=== PATIENT | male | born 1960 | race Caucasian/White ===

== ENCOUNTER 2020-12-03 09:41 | Outpatient (CLI) | payer OTHER, SELFPAY ==
--- NOTE | 2020-12-03 11:30 | NEURO_ITS ---
Impression: # Complains of numbness of hands. # Subtle Carpal Tunnel Syndrome involving only sensory component. # No ulnar neuropathy. # Normal needle/EMG exam. Nerve Conduction Studies Anti Sensory Summary Table Stim Site NR Peak (ms) P-T Amp (?V) Site1 Site2 Delta-P (ms) Dist (cm) Shen (m/s) Left Median Anti Sensory (2-3nd Digit) Wrist 3.8 18.1 Wrist 2-3nd Digit 3.8 14.0 37 Wrist 4.2 40.6 Wrist 2-3nd Digit 3.8 14.0 37 Right Median Anti Sensory (2-3nd Digit) Wrist 3.7 34.7 Wrist 2-3nd Digit 3.7 14.0 38 Wrist 3.6 39.3 Wrist 2-3nd Digit 3.7 14.0 38 Left Radial Anti Sensory (Base 1st Digit) Wrist 2.8 17.5 Wrist Base 1st Digit 2.8 0.0 Right Radial Anti Sensory (Base 1st Digit) Wrist 2.8 11.7 Wrist Base 1st Digit 2.8 0.0 Left Ulnar Anti Sensory (5th Digit) Wrist 2.1 56.7 Wrist 5th Digit 2.1 14.0 67 Right Ulnar Anti Sensory (5th Digit) Wrist 3.0 27.9 Wrist 5th Digit 3.0 14.0 47 Motor Summary Table Stim Site NR Onset (ms) O-P Amp (mV) Site1 Site2 Delta-0 (ms) Dist (cm) Shen (m/s) Left Median Motor (Abd Poll Brev) Wrist 3.7 2.8 Elbow Wrist 5.0 30.0 60 Elbow 8.7 3.0 Right Median Motor (Abd Poll Brev) Wrist 3.7 4.5 Elbow Wrist 5.0 29.0 58 Elbow 8.7 4.1 Left Ulnar Motor (Abd Dig Minimi) Wrist 2.8 6.7 A Elbow Wrist 5.6 32.0 57 A Elbow 8.4 6.2 Right Ulnar Motor (Abd Dig Minimi) Wrist 2.8 7.1 A Elbow Wrist 5.4 31.0 57 A Elbow 8.2 6.0 F Wave Studies NR F-Lat (ms) L-R F-Lat (ms) Left Median (Mrkrs) (Abd Poll Brev) 29.62 0.54 Right Median (Mrkrs) (Abd Poll Brev) 30.16 0.54 Left Ulnar (Mrkrs) (Abd Dig Min) 29.21 1.02 Right Ulnar (Mrkrs) (Abd Dig Min) 30.22 1.02 EMG Side Muscle Nerve Root Ins Act Fibs Amp Dur Recrt Comment Right 1stDorInt Ulnar C8-T1 Nml Nml Nml Nml Nml Right Ext Indicis Radial (Post Int) C7-8 Nml Nml Nml Nml Nml Right Ext Digitorum Radial (Post Int) C7-8 Nml Nml Nml Nml Nml Right BrachioRad Radial C5-6 Nml Nml Nml Nml Nml Right PronatorTeres Median C6-7 Nml Nml Nml Nml Nml Right Abd Poll Brev Median C8-T1 Nml Nml Nml Nml Nml Left 1stDorInt Ulnar C8-T1 Nml Nml Nml Nml Nml Left Ext Indicis Radial (Post Int) C7-8 Nml Nml Nml Nml Nml Left Ext Digitorum Radial (Post Int) C7-8 Nml Nml Nml Nml Nml Left BrachioRad Radial C5-6 Nml Nml Nml Nml Nml Left PronatorTeres Median C6-7 Nml Nml Nml Nml Nml Left Abd Poll Brev Median C8-T1 Nml Nml Nml Nml Nml Right Biceps Musculocut C5-6 Nml Nml Nml Nml Nml Right Triceps Radial C6-7-8 Nml Nml Nml Nml Nml Right Deltoid Axillary C5-6 Nml Nml Nml Nml Nml Left Biceps Musculocut C5-6 Nml Nml Nml Nml Nml Left Triceps Radial C6-7-8 Nml Nml Nml Nml Nml Left Deltoid Axillary C5-6 Nml Nml Nml Nml Nml Left ABD Dig Min Ulnar C8-T1 Nml Nml Nml Nml Nml Right ABD Dig Min Ulnar C8-T1 Nml Nml Nml Nml Nml MTDD
== END 2020-12-03 09:42 | disposition home or self-care (01) ==
PROVIDERS: Visit Provider Orthopaedic Surgery
DX: G56.03 Carpal tunnel syndrome, bilateral upper limbs (principal)
CPT/HCPCS: 95886; 95911

== ENCOUNTER 2020-12-29 01:24 | Day surgery (SDC) | payer OTHER, SELFPAY ==
[2020-12-21 14:49] VITALS: BMI 23.7
--- NOTE | 2020-12-28 15:35 | P.PNAN_ITS ---
Anes - Initial Pre Proc Eval Procedure: Operation Date: 12/29/20 14:30 Proposed Procedures p Right Carpal Tunnel Release - Boone Reynaga MD Date/Time: 12/28/20 15:35 Surgeon: Boone Reynaga MD Pre Op Diagnosis: carpal tunnel syndrome Patient Data Age: 60 Gender: M Height: 1.8 m Weight: 77.11 kg Allergies Allergy/AdvReac Type Severity Reaction Status Date / Time No Known Allergies Allergy Verified 12/23/20 10:57 Home Medications Medication Instructions Recorded Confirmed Type No Home Medications 11/05/20 12/23/20 History Patient hx anesthesia problems: none Family hx anesthesia problems: none Results Review: All pre-operative results and documents have been reviewed as part of the pre-operative evaluation. [facility] Past Medical History Medical History (Updated 12/28/20 @ 15:36 by Edinson Conn MD) Carpal tunnel syndrome of left wrist Carpal tunnel syndrome of right wrist ETOH abuse Left knee pain Primary osteoarthritis of left knee Surgical History Surgical History History of hand surgery (~11/1977) End of Ring Finger Amputated, Long Finger Mangled, Surgery (Pin) Put in Long Finger History of hand surgery (~2015) History of nasal surgery (~06/1988) Nasal Septal Reconstruction History of tonsillectomy and adenoidectomy (~09/1967) Family History Family History Father Throat cancer Mother Diabetes mellitus Social History Social History Smoking status: Never smoker Tobacco type: smokeless tobacco Smokeless tobacco user: chewing tobacco Second hand tobacco smoke exposure: No Additional smoking assessment comments: Quit chewing tobacco 10 years ago; did it for 25 years or so Alcohol intake: current Drinks per week: 70 Alcohol use details: beer drinks (10-12 beers per day) Substance use: never Substance use type: does not use Living arrangements: with family Spiritual care concerns: No Anes - Eval Final PreProcedure Day of Procedure 12/28/20 15:35 Patient weight: normal Heart: regular rate and rhythm Lungs: clear to auscultation and normal air movement Airway: Mallampati scale class II Neurological: alert and oriented Last oral intake: >/= 8 hours ASA classification: III Emergent: no Anesthetic plan: proceed Anesthesia type and monitoring: general GIVS and LMA Results Review: All pre-operative results and documents have been reviewed as part of the pre-operative evaluation. Informed Consent: The patient's anesthetic plan and its attendant risks and benefits were discussed with the patient/family/POA. Questions were solicited and answers provided to the satisfaction of the patient/family/POA.
--- NOTE | 2020-12-29 10:41 | WPDHPUPDATE1 ---
History and Physical Update Update Date/Time: 12/29/20 10:41 History and Physical has been reviewed, including an updated exam of the patient. There are NO changes in the patient's condition. Risks, benefits, and alternatives have been discussed and questions answered. Patient agrees to proceed with procedure.
[2020-12-29 12:35] VITALS: BP 177/85; PULSE 74; RESP 16; TEMP 36.5; O2SAT 100
[2020-12-29 12:40] VITALS: BMI 23.1
[2020-12-29] MEDS: LACTATED RINGERS 1,000 ML 30 ML IV CONT (12:50)
[2020-12-29] MEDS: ACETAMINOPHEN 500 MG TABLET 1000 MG PO (12:54)
[2020-12-29] MEDS: KETOROLAC 15 MG/ML VIAL (*BKC) IV PUSH (12:55)
[2020-12-29 14:04] VITALS: BP 138/81; PULSE 81; RESP 14; O2SAT 96
[2020-12-29] MEDS: LIDO 1%/EPINEPHRINE 1:100,000 50 ML VIAL INFILTRATE (14:06)
--- NOTE | 2020-12-29 14:23 | W.PM.PROC2 ---
Procedure Note - Detailed Date of Procedure 12/29/20 Pre-op Diagnosis carpal tunnel syndrome Post-op Diagnosis same Procedure Performed Right carpal tunnel release. Surgeon Boone Reynaga MD Anesthesia general Description of Procedure Operative details. After sedation was administer, the hand was prepped and draped in the usual sterile fashion. The proposed incision was marked using typical anatomic landmarks. 5ML 1% Lidocaine with epinephrine was injected along the incision line and at the distal forearm. The limb was exsanguinated and the tourniquet inflated to 250 millimeters of mercury. A longitudinal incision was taken sharply. Dissection was brought down to the transverse carpal ligament. Under direct vision the ligament was incised sharply. The proximal release was carried out with dissection scissors. The contents of the carpal canal were protected with a [place] elevator. The transverse carpal ligament was confirmed to be widely patent. Estimated Blood Loss -1.0 Tourniquet Time 4 Pathology none sent Complications No immediate complications Condition stable Disposition PACU
[2020-12-29 14:30] VITALS: BP 150/79; PULSE 72; RESP 16
== END 2020-12-29 14:50 | disposition home or self-care (01) ==
PROVIDERS: Visit Provider Orthopaedic Surgery
PROC: (CPT 64721; principal; 2020-12-29 14:30)
DX: G56.01 Carpal tunnel syndrome, right upper limb (principal); Z87.891 Personal history of nicotine dependence
CPT/HCPCS: 64721; A9270; J1885; J2250; J2270; J2704; J7120

== ENCOUNTER 2021-01-21 13:08 | Day surgery (SDC) | payer OTHER, SELFPAY ==
[2021-01-13 10:22] VITALS: BMI 23.6
[2021-01-21] VITALS (7 sets, daily range): BP systolic 124–180; BP diastolic 77–91; PULSE 51–72; RESP 10–16; TEMP 36.2–37.1; O2SAT 99–100
--- NOTE | 2021-01-21 07:21 | WPDHPUPDATE1 ---
History and Physical Update Update Date/Time: 01/21/21 07:21 History and Physical has been reviewed, including an updated exam of the patient. There are NO changes in the patient's condition. Risks, benefits, and alternatives have been discussed and questions answered. Patient agrees to proceed with procedure.
[2021-01-21] MEDS: LACTATED RINGERS 1,000 ML 30 ML IV CONT (09:26)
[2021-01-21] MEDS: ACETAMINOPHEN 500 MG TABLET 1000 MG PO (09:26)
[2021-01-21] MEDS: KETOROLAC 15 MG/ML VIAL (*BKC) IV PUSH (09:26)
--- NOTE | 2021-01-21 09:41 | WPDANESEPPF ---
Anes - Initial Pre Proc Eval Procedure: Operation Date: 01/21/21 10:30 Proposed Procedures p Left Carpal Tunnel Release - Boone Reynaga MD Date/Time: 01/21/21 09:41 Surgeon: Boone Reynaga MD Pre Op Diagnosis: left carpal tunnel syndrome Patient Data Age: 60 Gender: M Height: 1.8 m Weight: 77.3 kg Last Vital Signs Temp 37.1 C 01/21/21 09:02 Pulse 72 01/21/21 09:02 Resp 16 01/21/21 09:02 BP 180/91 H 01/21/21 09:02 Pulse Ox 100 01/21/21 09:02 Allergies Allergy/AdvReac Type Severity Reaction Status Date / Time No Known Allergies Allergy Verified 01/21/21 08:54 Home Medications Medication Instructions Recorded Confirmed Type hydrocodone-acetaminophen 1 tablet PO Q4-6H PRN #20 tablet 12/29/20 01/21/21 Rx MDD 6 Patient hx anesthesia problems: none Family hx anesthesia problems: none Results Review: All pre-operative results and documents have been reviewed as part of the pre-operative evaluation. [facility] Past Medical History Medical History Carpal tunnel syndrome of left wrist Carpal tunnel syndrome of right wrist ETOH abuse Left knee pain Primary osteoarthritis of left knee Surgical History Surgical History History of hand surgery (~11/1977) End of Ring Finger Amputated, Long Finger Mangled, Surgery (Pin) Put in Long Finger History of hand surgery (~2015) History of nasal surgery (~06/1988) Nasal Septal Reconstruction History of tonsillectomy and adenoidectomy (~09/1967) Family History Family History Father Throat cancer Mother Diabetes mellitus Social History Social History Smoking status: Never smoker Tobacco type: smokeless tobacco Smokeless tobacco user: chewing tobacco Second hand tobacco smoke exposure: No Additional smoking assessment comments: Quit chewing tobacco 10 years ago; did it for 25 years or so Alcohol intake: current Drinks per week: 70 Alcohol use details: beer drinks (10-12 beers per day) Substance use: never Substance use type: does not use Spiritual care concerns: No Anes - Eval Final PreProcedure Day of Procedure 01/21/21 09:41 Patient weight: normal Heart: regular rate and rhythm Lungs: decreased breath sounds Airway: Mallampati scale class II and class III Neurological: alert and oriented Last oral intake: >/= 8 hours ASA classification: III Emergent: no Anesthetic plan: proceed Anesthesia type and monitoring: general LMA and standard monitoring Results Review: All pre-operative results and documents have been reviewed as part of the pre-operative evaluation. Informed Consent: The patient's anesthetic plan and its attendant risks and benefits were discussed with the patient/family/POA. Questions were solicited and answers provided to the satisfaction of the patient/family/POA.
[2021-01-21] MEDS: ceFAZolin 2 GM/D5W 50 ML 2 GM/50 ML BAG IVPB (10:43)
--- NOTE | 2021-01-21 17:20 | P.OP_ITS ---
Procedure Note - Detailed Date of Procedure 01/21/21 Pre-op Diagnosis left carpal tunnel syndrome Post-op Diagnosis same Procedure Performed Left Carpal tunnel release Surgeon Boone Reynaga MD Cementing Machine Operator Letitia Joe PA-C Anesthesia general Description of Procedure Operative details. After sedation was administer, the hand was prepped and draped in the usual sterile fashion. The proposed incision was marked using typical anatomic landmarks. 4ML 0.5% Marcaine with epinephrine was injected along the incision line and at the distal forearm. The limb was exsanguinated and the tourniquet inflated to 250 millimeters of mercury. A longitudinal incision was taken sharply. Dissection was brought down to the transverse carpal ligament. Under direct vision the ligament was incised sharply. The proximal release was carried out with dissection scissors. The contents of the carpal canal were protected with a [place] elevator. The transverse carpal ligament was confirmed to be widely patent. The wound was closed with interrupted monofilament suture. Bulky splint was placed at the wrist. The patient was extubated and brought to the recovery room in stable condition. Estimated Blood Loss -1.0 Pathology none sent Complications No immediate complications Condition stable Disposition PACU
== END 2021-01-21 13:09 | disposition home or self-care (01) ==
LOC: ANHSURGERY 13:09
PROVIDERS: Visit Provider Orthopaedic Surgery
PROC: (CPT 64721; principal; 2021-01-21 10:30)
DX: G56.02 Carpal tunnel syndrome, left upper limb (principal); Z87.891 Personal history of nicotine dependence
CPT/HCPCS: 64721; A9270; J0690; J1885; J2250; J2270; J2704; J7120

== ENCOUNTER 2021-02-16 14:37 | Outpatient (CLI) | payer OTHER, SELFPAY ==
--- NOTE | ~2021-02-16 | MR_ITS ---
EXAMINATION: MR knee LT wo con DATE: 02/16/2021 15:42 INDICATION: Unilateral primary osteoarthritis of the left knee. TECHNIQUE: Magnetic resonance imaging (MRI) of the left knee was performed without intravenous contra st. Sequences included coronal PD-weighted FSE, coronal PD-weighted FS FSE, sagittal T2-weighted FSE , sagittal PD-weighted FS FSE and axial PD weighted fat saturated FSE. COMPARISON: None. FINDINGS: Medial compartment: Complex tear of the medial meniscus including a radial component near the posterior root as well as a longitudinal horizontal components at the body and posterior horn. Deep chondral ulceration with cor tical irregularity and mild subarticular edema at the anterior to central weightbearing medial femora l condyle and with mild subarticular edema along the medial margin of the medial tibial plateau. Lateral compartment: Lateral meniscus is normal. Small region of partial-thickness chondral ulceration with underlying cor tical irregularity and cystlike changes at the posterior weightbearing lateral femoral condyle. Remai candy cartilage in the lateral compartment appears normal. Patellofemoral compartment: Deep chondral fissuring with tiny foci of subarticular signal change at the medial tibial plateau. Ad ditional deep chondral ulceration and fissuring with mild cortical irregularity and subarticular sign al changes at the inferior aspect of the medial trochlea and trochlear groove. Ligaments and tendons: Anterior and posterior cruciate ligaments are normal. Fibular collateral ligament complex is normal. There is mild increased fluid signal extending along the deep and superficial margin of the proximal to mid medial collateral ligament which could represent a low-grade sprain in the setting of recent t rauma or reactive edema related to the underlying meniscal tear. The extensor mechanism is normal. Th e visualized medial and lateral hamstring tendons as well as the iliotibial band are normal. Fluid: Moderate-sized knee joint effusion with mild to moderate synovitis at the suprapatellar pouch. No loo se osteochondral bodies identified. Osseous/other: Bone alignment is normal. No fracture or pathologic marrow replacing process. IMPRESSION: 1. Complex medial meniscal tear. 2. Tricompartmental osteoarthritis, moderate severity with high-grade chondromalacia in the medial co mpartment and mild in the patellofemoral and lateral compartments, both with high-grade chondromalaci a and extensive in the patellofemoral compartment. 3. Moderate-sized right knee joint effusion. 4. Edema along the normal-appearing medial collateral ligament most likely reactive edema related to meniscal tear although differential would include low-grade ligament sprain if there has been history of recent trauma. Reviewed, dictated and finalized at location A. COORDINATOR IMPRESSION: 1. Complex medial meniscal tear. 2. Tricompartmental osteoarthritis, moderate severity with high-grade chondroma lacia in the medial compartment and mild in the patellofemoral and lateral comp artments, both with high-grade chondromalacia and extensive in the patellofemor al compartment. 3. Moderate-sized right knee joint effusion. 4. Edema along the normal-appearing medial collateral ligament most likely reac tive edema related to meniscal tear although differential would include low-gra de ligament sprain if there has been history of recent trauma.
== END 2021-02-16 14:38 | disposition home or self-care (01) ==
LOC: ANHIMG 14:37
PROVIDERS: Visit Provider Physician Assistant Surgical
DX: M17.12 Unilateral primary osteoarthritis, left knee (principal); S83.242A Other tear of medial meniscus, current injury, left knee, initial encounter; M25.462 Effusion, left knee; M79.89 Other specified soft tissue disorders
CPT/HCPCS: 73721

== ENCOUNTER 2021-03-17 01:03 | Day surgery (SDC) | payer OTHER, SELFPAY ==
--- NOTE | 2021-03-09 14:14 | PC.NURSE ---
Report to the Outpatient Waiting Room, entrance under the green pavilion located off [facility], at time ____0600___ on date _03/17/21 . OR Time: . - You and your visitor will be asked a series of questions to screen for COVID 19 for your protection. - A mask is required within the hospital. - Only one visitor is allowed at this time. Patient visitors will be guided where to wait when not with patient. Preoperative COVID Testing Requirements: No COVID Test needed if: (proof is required; if not received patient will have Rapid Test prior to entry) - Patient has received COVID Vaccine at least 14 days prior to procedure date or - Patient has positive COVID test result within last 90 days of surgery date. COVID Test needed if above criteria is not met If not COVID vaccinated a COVID test must be conducted within 72 hours of surgery and patient is asked to isolate self from time of testing until procedure. You will go to the [facility] for your COVID testing. The [facility] site is located at the corner of [address] [facility]. You will only be called if COVID results are positive and your surgeon may reschedule your elective surgery date. Patients may have clear liquids (water, carbonated beverages, clear teas, apple juice) until 3 hours prior to surgery with a maximum of 20 ounces. - No food from midnight until time of surgery - Infants may have breast milk until 4 hours before surgery, infant formula 6 hours prior to surgery. - Children will be allowed to drink immediately following surgery. If applicable, please bring a bottle or sippy cup to assist with drinking. Juice, water, soda, and popsicles are readily available. For infants on formula, please bring formula the day of surgery. Pacifiers are allowed. Take the following medications with a SIP of water the morning of surgery: NONE Medications to discontinue per physician NONE Date to take last dose___NONE Please no make-up, nail swedish, hairspray, perfume, deodorant, or body powder the day of surgery. No jewelry (including any body piercings) or valuables the day of surgery, leave them at home. Please take a shower or bath the night before, or the morning of, surgery with an antibacterial soap. Wear comfortable, loose fitting clothing. Children are encouraged to wear pajamas. - Jewelry must be removed prior to entering the operating room. Rings and piercings that are not removed may be cut off. - The hospital will not accept responsibility for valuables. - Please leave all valuables, including medications, at home the day of surgery. If you are going home after surgery, a licensed spotter driver must drive you home. - NO public transportation without another adult. - We recommend that an adult stay with you for 24 hours following discharge. - We also recommend that you do not drive, make important decision, drink alcoholic beverages, or take any drugs that were not prescribed by your health care provider for at least 24 hours after your discharge time. For Pediatric surgeries, we recommend two adults accompany the child home (only one inside the building at this time). Follow any additional instructions given to you from your surgeon. Telephone instructions given to ___PT and asked if any additional questions and then verbalized understanding. Patient advised to call surgeon office or pre surgery nurse liaison [phone] if any additional questions.
[2021-03-09 14:21] VITALS: BMI 24.6
[2021-03-17] VITALS (7 sets, daily range): BP systolic 133–169; BP diastolic 73–87; PULSE 59–72; RESP 16–18; TEMP 36.6–36.7; O2SAT 98–100
[2021-03-17] MEDS: ACETAMINOPHEN 500 MG TABLET 1000 MG PO (06:09)
--- NOTE | 2021-03-17 06:33 | P.PNAN_ITS ---
Anes - Initial Pre Proc Eval Procedure: Operation Date: 03/17/21 07:30 Proposed Procedures p Arthroscopy, Partial Medial Meniscectomy, Left Knee - Boone Reynaga MD Date/Time: 03/17/21 06:33 Surgeon: Boone Reynaga MD Pre Op Diagnosis: medial meniscus tear left knee Patient Data Age: 60 Gender: M Height: 1.78 m Weight: 78.2 kg Allergies Allergy/AdvReac Type Severity Reaction Status Date / Time No Known Allergies Allergy Verified 03/17/21 06:07 Home Medications Medication Instructions Recorded Confirmed Type No Home Medications 02/03/21 03/17/21 History Patient hx anesthesia problems: none Family hx anesthesia problems: none Results Review: All pre-operative results and documents have been reviewed as part of the pre-operative evaluation. [facility] Past Medical History Medical History Carpal tunnel syndrome of left wrist Carpal tunnel syndrome of right wrist ETOH abuse Left knee pain Primary osteoarthritis of left knee Surgical History Surgical History History of hand surgery (~11/1977) End of Ring Finger Amputated, Long Finger Mangled, Surgery (Pin) Put in Long Finger History of hand surgery (~2015) History of nasal surgery (~06/1988) Nasal Septal Reconstruction History of tonsillectomy and adenoidectomy (~09/1967) Family History Family History Father Throat cancer Mother Diabetes mellitus Social History Social History Smoking status: Never smoker Tobacco type: smokeless tobacco Smokeless tobacco user: chewing tobacco Second hand tobacco smoke exposure: No Smoking end date: 03/20/89 Additional smoking assessment comments: Quit chewing tobacco 10 years ago; did it for 25 years or so Alcohol intake: current Drinks per week: 70 Alcohol use details: 10-12 BEERS PER DAY Substance use: never Substance use type: does not use Living arrangements: with family Spiritual care concerns: No Anes - Eval Final PreProcedure Day of Procedure 03/17/21 06:33 Patient weight: normal Heart: regular rate and rhythm Lungs: clear to auscultation Airway: Mallampati scale class II Neurological: alert and oriented Last oral intake: >/= 8 hours ASA classification: III Emergent: no Anesthetic plan: proceed Anesthesia type and monitoring: general ETT and standard monitoring Results Review: All pre-operative results and documents have been reviewed as part of the pre-operative evaluation. Informed Consent: The patient's anesthetic plan and its attendant risks and benefits were discussed with the patient/family/POA. Questions were solicited and answers provided to the satisfaction of the patient/family/POA.
[2021-03-17] MEDS: LACTATED RINGERS 1,000 ML 30 ML IV CONT ×2 (06:47→08:22)
[2021-03-17] MEDS: KETOROLAC 15 MG/ML VIAL (*BKC) IV PUSH (06:47)
--- NOTE | 2021-03-17 07:20 | WPDHPUPDATE1 ---
History and Physical Update Update Date/Time: 03/17/21 07:20 History and Physical has been reviewed, including an updated exam of the patient. There are NO changes in the patient's condition. Risks, benefits, and alternatives have been discussed and questions answered. Patient agrees to proceed with procedure.
[2021-03-17] MEDS: ceFAZolin 2 GM/D5W 50 ML 2 GM/50 ML BAG IVPB (07:27)
[2021-03-17] MEDS: BUPIVACAINE/EPINEPHRINE 0.25% 10 ML VIAL 20 ML INFILTRATE (07:43)
--- NOTE | 2021-03-17 15:56 | W.PM.PROC2 ---
Procedure Note - Detailed Date of Procedure 03/17/21 Pre-op Diagnosis medial meniscus tear left knee Post-op Diagnosis same Procedure Performed Arthroscopic partial medial meniscectomy, left knee. Surgeon Boone Reynaga MD Professor Of Visual Arts Letitia Joe PA-C Anesthesia general Findings Extensive tearing of the posterior horn medial meniscus. Early areas of exposed bone on the medial tibia and medial femur. ACL intact. Medial femur chondromalacia grade 4, medial tibia grade 4. Lateral femur chondromalacia grade 0, lateral tibia grade 0. Patellar grade 2, trochlea grade 3. Description of Procedure The patient was identified and the surgical site confirmed and signed in the preoperative holding area. Antibiotics were started per protocol. She was brought to the operative room and transferred to the OR table. A general anesthetic was administered. Supine position with the operative lower extremity position in the leg [place] after placement of a well padded tourniquet. The leg support was lowered and the contralateral limb was supported with a soft bolster. The knee was prepped and draped in the usual sterile fashion. A time-out was performed. The portal sites were marked and infiltrated with 0.5% Marcaine 20 mL. The limb was exsanguinated and the tourniquet inflated to 300 mL Hg. Standard inferolateral and inferomedial portals were established. Inflow was obtained with the saline pump. The camera was introduced. Diagnostic inspection of the joint was accomplished. The meniscus was debrided with the arthroscopic shaver and punches until stable. The arthroscopic instruments were removed. The tourniquet released and wounds closed with subcutaneous 4-0 Monocryl absorbable suture. Steri strips and a sterile dressing were applied. A light elastic wrap was placed. The patient was extubated and brought to the recovery room in stable condition. Estimated Blood Loss 5 Drains No Complications No immediate complications Condition stable Disposition PACU
== END 2021-03-17 09:54 | disposition home or self-care (01) ==
PROVIDERS: Visit Provider Orthopaedic Surgery
PROC: (CPT 29870; principal; 2021-03-17 07:30)
DX: M23.322 Other meniscus derangements, posterior horn of medial meniscus, left knee (principal); M94.262 Chondromalacia, left knee; M17.12 Unilateral primary osteoarthritis, left knee; Z87.891 Personal history of nicotine dependence
CPT/HCPCS: 29881; A9270; J0330; J0690; J1100; J1885; J2405; J2704; J3010; J7120

== ENCOUNTER 2023-09-13 08:18 | Outpatient (CLI) | payer BC, SELFPAY ==
--- NOTE | ~2023-09-13 | XR_ITS ---
EXAMINATION: XR knee LT min 4V DATE: 09/13/2023 08:39 INDICATION: Unilateral primary osteoarthritis, left knee. TECHNIQUE: 4 views of left knee including standing views were obtained. COMPARISON: Left knee radiographs 05/27/2021 FINDINGS: Bone alignment is normal. No fracture. There is severe osteoarthritis of medial compartment and mild osteoarthritis of lateral and patellofemoral compartments. There is a small knee joint effu chetna. IMPRESSION: 1. Severe left knee osteoarthritis. 2. Small left knee joint effusion. Reviewed, dictated and finalized at location A.
== END 2023-09-13 08:19 | disposition home or self-care (01) ==
LOC: ANHIMG 08:23
PROVIDERS: PCP Family Medicine; Visit Provider Orthopaedic Surgery
DX: M17.12 Unilateral primary osteoarthritis, left knee (principal); M25.462 Effusion, left knee
CPT/HCPCS: 73564

== ENCOUNTER 2023-09-25 15:53 | Outpatient (CLI) | payer BC, SELFPAY ==
--- NOTE | ~2023-09-25 | CT_ITS ---
EXAMINATION: CT LE LT wo con DATE: 09/25/2023 16:15 INDICATION: Unilateral primary osteoarthrosis, left knee. TECHNIQUE: Computed tomography (CT) of the left lower limb was performed without intravenous contrast . Automated exposure control and iterative reconstruction technique were employed. The dose-length pr oduct was 1978.75 mGy-cm. COMPARISON: Left knee radiographs 09/13/2023 FINDINGS: There is a left inguinal hernia containing fat. There is moderate left hip osteoarthritis. Left knee demonstrates varus angulation. There is severe osteoarthritis of medial compartment and mil d osteoarthritis of lateral and patellofemoral compartments. There is a small knee joint effusion. Th ere are changes of arthroplasty of first metatarsophalangeal joint. IMPRESSION: 1. Severe left knee osteoarthritis. 2. Small left knee joint effusion. Reviewed, dictated and finalized at location E.
== END 2023-09-25 15:54 | disposition home or self-care (01) ==
LOC: ANHIMG 15:54
PROVIDERS: PCP Family Medicine; Visit Provider Orthopaedic Surgery
DX: M17.12 Unilateral primary osteoarthritis, left knee (principal); M25.462 Effusion, left knee
CPT/HCPCS: 73700

== ENCOUNTER 2023-11-13 08:08 | Outpatient (CLI) | payer BC, SELFPAY ==
[2023-11-13 08:32] LABS: Hematocrit 47.7 % (42.0-52.0); Hemoglobin 16.3 g/dL (14.0-18.0)
--- NOTE | 2023-11-13 08:36 | ECG_ITS ---
Test Date: 2023-11-13 08:46:07 Measurements Intervals [place] Rate: 67 P: 33 WI: 144 QRS: -18 QRSD: 94 T: 6 QT: 400 QTc: 423 Interpretive Statements SINUS RHYTHM POOR R-WAVE PROGRESSION BORDERLINE ECG No previous ECG available for comparison Electronically Signed On 11-14-2023 07:17:58 CDT by Bobo Barber M.D.
[2023-11-13 08:47] LABS: Albumin Level 4.6 g/dL (3.5-5.1); Estimated Glomerular Filt Rate > 60; Glucose 117 mg/dL (65-110)
== END 2023-11-13 08:09 | disposition home or self-care (01) ==
LOC: ANHLAB 08:10
PROVIDERS: PCP Family Medicine; Visit Provider Orthopaedic Surgery
DX: Z01.818 Encounter for other preprocedural examination (principal); M17.12 Unilateral primary osteoarthritis, left knee
CPT/HCPCS: 36415; 82040; 82565; 82947; 85014; 85018; 93005

== ENCOUNTER 2023-12-25 10:40 | Outpatient (CLI) | payer BC, SELFPAY ==
[2023-12-25 12:06] LABS: Basophils Percent Auto 0.6 % (0.2-1.2); Eosinophils Percent Auto 0.7 % (0-4.4); Hematocrit 46.2 % (42.0-52.0); Immature Granulocyte Absolute 0.01 K/mm3 (0.00-0.031); Immature Granulocyte Percent A 0.2 % (0-0.5); Lymphocytes Absolute Auto 1.23 K/mm3 (0.9-3.2); Mean Corpuscular HGB Conc 34.6 g/dl (32-36); Mean Corpuscular Hemoglobin 31.3 pg (26-34); Mean Corpuscular Volume 90.4 fl (80-100); Mean Platelet Volume 9.3 fl (7.4-10.4); Monocytes Absolute Auto 0.5 K/mm3 (0.1-0.6); Monocytes Percent Auto 8.4 % (2.6-8.5); Neutrophils Absolute Auto 3.6 K/mm3 (1.3-6.7); Neutrophils Percent Auto 67.1 % (45.5-73.1); Platelet Count Result 252 k/mm3 (150-375); Red Blood Count 5.11 M/mm3 (4.6-6.20); Red Cell Distribution Width 12.6 % (11.5-14.5); White Blood Count 5.4 K/mm3 (4.5-10.0)
[2023-12-25 12:22] LABS: Urine Cotinine NEGATIVE
[2023-12-25 12:23] LABS: Hemoglobin A1C 5.7 % (<5.7)
[2023-12-25 13:19] LABS: MRSA (PCR) NOT DETECTED (NOT DETECTE)
== END 2023-12-25 10:41 | disposition home or self-care (01) ==
LOC: ANHSURGERY 10:46
PROVIDERS: PCP Family Medicine; Visit Provider Orthopaedic Surgery
DX: Z01.812 Encounter for preprocedural laboratory examination (principal); M17.12 Unilateral primary osteoarthritis, left knee
CPT/HCPCS: 80307; 83036; 85025; 87641

== ENCOUNTER 2024-01-09 02:28 | Day surgery (SDC) | payer BC, SELFPAY ==
[2023-12-25 10:51] VITALS: BMI 26.7
--- NOTE | 2023-12-25 11:19 | PC.NURSE ---
Addendum entered by Lucero Gary RN 12/25/23 11:46: NEW TIME ARRIVE AT 0600 FOR 0730 SURGERY Original Note: Report to the Outpatient Waiting Room, entrance under the green pavilion located off [facility], at time __8:30 AM on date _01/09/24 . Planned Procedure Time: _10:30 AM .? Time changes happen often and if your time is changed the preop area will call you the afternoon before. - You and your visitor will be asked to self-screen and do not enter if you have any COVID symptoms. Please call surgeon if you need to reschedule. - A mask is optional within the hospital at this time. Patients may have clear liquids (water, carbonated beverages, clear teas, apple juice) until 3 hours prior to surgery (7:30 AM)with a maximum of 20 ounces. - No food from midnight until time of surgery and no smoking - Infants may have breast milk until 4 hours before surgery, formula 6 hours prior to surgery. - Children will be allowed to drink immediately following surgery.? If applicable, please bring a bottle or sippy cup to assist with drinking. Juice, water, soda, and popsicles are readily available.? For infants on formula, please bring formula the day of surgery.? Pacifiers are allowed. Take only the following medications with a SIP of water on the morning of surgery: ____NONE DO NOT STOP ANY OF YOUR OTHER PRESCRIPTION MEDICATIONS PRIOR TO SURGERY EXCEPT THE FOLLOWING Medications to discontinue per physician ____NONE Please no make-up, nail upper sorbian, hairspray, perfume, deodorant, or body powder the day of surgery.? No jewelry (including any body piercings) or valuables the day of surgery, leave them at home.? Please take a shower or bath the night before, or the morning of, surgery with an antibacterial soap.? Wear comfortable, loose fitting clothing.? Children are encouraged to wear pajamas. - Jewelry must be removed prior to entering the operating room.? Rings and piercings that are not removed may be cut off. - The hospital will not accept responsibility for valuables.? - Please leave all valuables, including medications, at home the day of surgery. If you are going home after surgery, a licensed p d driver must drive you home.? - NO public transportation without another adult if you receive anesthesia. - We recommend that an adult stay with you for 24 hours following discharge. - We also recommend that you do not drive, make important decision, drink alcoholic beverages, or take any drugs that were not prescribed by your health care provider for at least 24 hours after your discharge time. Follow any additional instructions given to you from your surgeon. VERBAL AND WRITTEN instructions given to _PATIENT AND ROSALEE and asked if any additional questions and then verbalized understanding. Patient advised to call surgeon office or pre surgery nurse liaison [phone] if any additional questions.
[2023-12-25 11:32] VITALS: BP 159/92; PULSE 73; RESP 18; TEMP 36.7; O2SAT 99
--- NOTE | 2024-01-08 13:58 | WPDANESEPPF ---
Anes - Initial Pre Proc Eval Procedure: Operation Date: 01/09/24 07:30 Proposed Procedures p Left Custom Total Knee Arthroplasty - Boone Reynaga MD Date/Time: 01/08/24 13:58 Surgeon: Boone Reynaga MD Pre Op Diagnosis: primary oa left knee Patient Data Age: 63 Gender: M Height: 1.75 m Weight: 82.1 kg Last Vital Signs Temp 98.0 F 12/25/23 11:32 Pulse 73 12/25/23 11:32 Resp 18 12/25/23 11:32 BP 159/92 H 12/25/23 11:32 Pulse Ox 99 12/25/23 11:32 O2 Del Method Room Air 12/25/23 11:32 Allergies Allergy/AdvReac Type Severity Reaction Status Date / Time No Known Allergies Allergy Verified 01/09/24 06:54 Home Medications Medication Instructions Recorded Confirmed Type allopurinol 100 mg tablet 100 mg PO DAILY 09/13/23 01/09/24 History acetaminophen 500 mg capsule 1,000 mg PO Q6H PRN Pain 12/25/23 01/09/24 History losartan 100 mg tablet 100 mg PO DAILY 12/25/23 01/09/24 History meloxicam 15 mg tablet 15 mg PO DAILY #30 tabs 12/25/23 01/09/24 Rx prednisone 5 mg tablet 5 mg PO DAILY 3 weeks #21 tabs 12/25/23 01/09/24 Rx Patient hx anesthesia problems: none Family hx anesthesia problems: none Results Review: All pre-operative results and documents have been reviewed as part of the pre-operative evaluation. [facility] Past Medical History Medical History Carpal tunnel syndrome of left wrist Carpal tunnel syndrome of right wrist ETOH abuse Left knee pain Primary osteoarthritis of left knee Surgical History Surgical History History of foot surgery Lt: 06/2023, Rt: 07/14/23 History of hand surgery (~11/1977) End of Ring Finger Amputated, Long Finger Mangled, Surgery (Pin) Put in Long Finger History of hand surgery (~2015) History of meniscectomy of left knee (~12/29/21) Partial Medial History of nasal surgery (~06/1988) Nasal Septal Reconstruction History of shoulder surgery (~05/03/23) History of tonsillectomy and adenoidectomy (~09/1967) Family History Family History Father Throat cancer Mother Diabetes mellitus Social History Social History Smoking status: Never smoker Tobacco type: smokeless tobacco Smokeless tobacco user: chewing tobacco Second hand tobacco smoke exposure: No Smoking end date: 03/20/89 Additional smoking assessment comments: QUIT CHEWING TOBACCO 1989.DENIES ANY FORM OF TOBACCO USE Alcohol intake: current Drinks per week: 84 Alcohol use details: 10-12 BEERS PER DAY Substance use: never Substance use type: does not use Do You Feel Safe in your Home?: Yes Lack of Transportation: No Lack of Food: Never True Current Housing: I Have Housing Concerned About Future Housing: No Difficulty Paying Gas/Electric Bills: No Difficulty Paying for Meds: No Currently Unemployed: No Education: High School Diploma/GED Difficulty w/ Childcare or Family Care: No Living arrangements: with family Spiritual care concerns: No Anes - Eval Final PreProcedure Day of Procedure 01/08/24 13:58 Patient weight: normal Heart: regular rate and rhythm Lungs: clear to auscultation Airway: Mallampati scale class II Neurological: alert and oriented Last oral intake: >/= 8 hours ASA classification: III Emergent: no Anesthetic plan: proceed Anesthesia type and monitoring: general LMA and standard monitoring Results Review: All pre-operative results and documents have been reviewed as part of the pre-operative evaluation. Informed Consent: The patient's anesthetic plan and its attendant risks and benefits were discussed with the patient/family/POA. Questions were solicited and answers provided to the satisfaction of the patient/family/POA.
[2024-01-09] VITALS (8 sets, daily range): BP systolic 136–170; BP diastolic 76–97; PULSE 63–103; RESP 13–20; TEMP 36.7–36.8; O2SAT 94–100
--- NOTE | ~2024-01-09 | XR_ITS ---
EXAMINATION: [id number] DATE: 01/09/2024 09:51 INDICATION: Total left knee arthroplasty. Postop. TECHNIQUE: 2 views of left knee were obtained. COMPARISON: Left knee radiograph 09/13/2023 FINDINGS: There is a total left knee arthroplasty with patellar resurfacing in near-anatomic alignmen t. No fracture. There is gas in the knee joint and soft tissues, consistent with recent surgery. IMPRESSION: 1. Total left knee arthroplasty in near-anatomic alignment. Reviewed, dictated and finalized at location A.
[2024-01-09] MEDS: LACTATED RINGERS 1,000 ML 30 ML IV CONT ×2 (06:40→09:36)
[2024-01-09] MEDS: TRANEXAMIC ACID 1,000MG/ISO100 1,000 MG/100 ML BAG 200 MG IVPB (06:41)
[2024-01-09] MEDS: ACETAMINOPHEN 500 MG TABLET 1000 MG PO (06:43)
--- NOTE | 2024-01-09 07:18 | WPDHPUPDATE1 ---
History and Physical Update Update Date/Time: 01/09/24 07:18 History and Physical has been reviewed, including an updated exam of the patient. There are NO changes in the patient's condition. Risks, benefits, and alternatives have been discussed and questions answered. Patient agrees to proceed with procedure.
[2024-01-09] MEDS: ceFAZolin 2 GM/D5W 50 ML 2 GM/50 ML BAG IVPB (07:28)
[2024-01-09] MEDS: SODIUM CHLORIDE 0.9% IV 37.7 ML, MORPHINE SULFATE INJ (*CRX) 2 MG, ROPivacaine HCL 1% 2... INFILTRATE (07:59)
[2024-01-09] MEDS: GENTAMICIN BONE CEMENT REFOBACIN 1 EACH TOPICAL (08:45)
--- NOTE | 2024-01-09 09:27 | W.PM.PROC2 ---
Procedure Note - Detailed Date of Procedure 01/09/24 Pre-op Diagnosis Left knee degenerative arthritis. Post-op Diagnosis Same Procedure Performed Total knee arthroplasty, left. Surgeon Boone Reynaga MD Transverse Abdominal Muscle Surgeon Letitia Joe PA-C Anesthesia General and Regional (Subsartorial block.) Findings Custom TKA optimal fit. Good bone quality. Tibia varus alignment corrected with asymmetric poly inserts. Slight PCL release. Description of Procedure Preoperative antibiotics were given. The limb was prepped and draped in the usual sterile fashion with a well-padded tourniquet high on the thigh. The limb was exsanguinated and the tourniquet inflated to 300 mmHg. A longitudinal incision was created just medial to the patella. A trivector approach to the knee was performed. Arthrotomy was taken down through the joint capsule. No significant releases were initially taken. The femur was exposed and the F1 jig was applied. The coring tool was used to remove the cartilage for the F2 jig to sit flush with the bone. The jig was pinned and the distal cut carefully taken. Caliper measurements confirmed appropriate bony resections according to the preoperative templated plan. The F4 cutting jig for the femur was applied, at the standard rotation. The AP and anterior chamfer cuts were taken. The F5 jig was applied and the posterior chamfer cuts were taken. The tibia was prepared using the T1 jig, after removing cartilage for the jig contact points. Proper alignment was checked with the alignment grace. The tibia was cut using the T1u guide. Gap balancing was performed. Gap measurements were taken and the knee was trialed. Excellent alignment and soft tissue balancing was confirmed. The posterior cruciate ligament was recessed along the proximal tibia. The patella was cut for resurfacing. Three lug holes were drilled. Meniscal remnants were removed. The trial components were assembled. Excellent range of motion and proper soft tissue balancing were confirmed throughout the full range of motion. Patellar tracking was excellent. The knee was copiously irrigated periodically throughout the procedure. The real implants were cemented into position. Excess cement was carefully removed. The wound was closed in layers with interrupted #1 Vicryl suture, 2-0 strata fix suture, 0 strata fix suture, 2-0 strata fix suture. Steri-Strips placed on the skin with the knee flexed. Sterile bulky dressing applied. The patient was brought to the recovery room in stable condition. There were no complications. Physician addictions counselor assistant, Letitia Joe PA-C, required for surgery; including patient positioning, draping, tissue retraction, maintaining instrument position, cement removal, wound closure, and dressing placement. Implants Conformis Custom total knee arthroplasty. Cemented. Cruciate retaining. 6C insert. 41 mm oval patella. Estimated Blood Loss 20 Tourniquet Time Total Tourniquet Time: 87 Drains No Complications No immediate complications Condition Stable Disposition PACU [facility] Billing Surgery - Charge Forward: Surgery Billing
[2024-01-09] MEDS: oxyCODONE HCL (*CRX) 5 MG TAB IR PO (10:33)
[2024-01-09] MEDS: TRANEXAMIC ACID 1,000 MG/10 ML AMPUL 1000 MG IV PUSH (10:47)
== END 2024-01-09 11:51 | disposition home or self-care (01) ==
PROVIDERS: PCP Family Medicine; Visit Provider Orthopaedic Surgery
PROC: (CPT 27447; principal; 2024-01-09 07:30)
DX: M17.12 Unilateral primary osteoarthritis, left knee (principal); G56.03 Carpal tunnel syndrome, bilateral upper limbs; Z79.52 Long term (current) use of systemic steroids; Z98.890 Other specified postprocedural states; Z87.891 Personal history of nicotine dependence; Z80.1 Family history of malignant neoplasm of trachea, bronchus and lung
CPT/HCPCS: 27447; 36415; 73560; 86850; 86900; 86901; 97110; 97161; 97165; 97530; A9270; C1713; C1776; J0171; J0690; J1100; J1885; J2003; J2250; J2270; J2405; J2704; J2795; J3010; J7120